=== PATIENT | female | born 1995 | race Two or more races ===

== ENCOUNTER 2016-10-28 20:03 | Outpatient (CLI) | payer OTHER | END 2016-10-28 20:04 | disposition home or self-care (01) | DX: N93.0 Postcoital and contact bleeding (principal); R10.31 Right lower quadrant pain ==

== ENCOUNTER 2016-12-18 20:32 | Emergency (ER) | payer OTHER ==
--- NOTE | 2016-12-18 22:03 | ED Physician Documentation ---
History of Present Illness - Stated complaint Stated Complaint: LT LEG PX - Chief complaint Chief Complaint: Ext Problem - History obtained from History obtained from: Patient - History of Present Illness Timing: How many weeks ago (several) Pain level max: 6 Pain level now: 6 Improved by: rest Worsened by: running - Additonal information Additional information: Patient is a 21-year-old female who presents to the emergency department with left tibial pain. This is better with rest and worse with running. States this is been an ongoing issue for several weeks. No fevers. No recent trauma. Review of Systems : denies: Now EGA Skin: denies: Rash Musculoskeletal: denies: Neck pain, Back pain Neurologic: denies: Headache PD PAST MEDICAL HISTORY - Past Medical History Past Medical History: No - Past Surgical History Past Surgical History: No - Present Medications Home Medications: Ambulatory Orders Medication Instructions Recorded Confirmed No Known Home Medications [No 12/18/16 12/18/16 Known Home Medications] - Allergies Allergies/Adverse Reactions: Allergies Allergy/AdvReac Type Severity Reaction Status Date / Time No Known Drug Allergies Allergy Verified 12/18/16 20:40 - Living Situation Living Situation: reports: With family Living Arrangement: reports: At home - Social History Does the pt have substance abuse?: No - Family History Family history: reports: Non contributory PD ED PE NORMAL - Vitals Vital signs reviewed: Yes - General General: Alert and oriented X 3, No acute distress - Derm Derm: Warm and dry - Extremities Extremities: No deformity, No tenderness to palpate, Normal ROM s pain, No edema , No calf tenderness / cord - Neuro Neuro: Alert and oriented X 3 - Psych Psych: Normal mood, Normal affect Results - Vitals Vitals: Vital Signs - 24 hr 12/18/16 12/18/16 20:36 22:12 Temperature 36.0 C L Heart Rate 79 76 Respiratory 20 16 Rate Blood Pressure 105/74 128/78 O2 Saturation 99 100 Oxygen O2 Source Room air PD MEDICAL DECISION MAKING - ED course Complexity details: considered differential, d/w patient ED course: Patient presents to the emergency department with what appears to be joseph splints. We will have her follow-up with her doctor for further evaluation and care. No tenderness on examination here. Recommend low impact exercise for her. Patient is ambulating well in the emergency department. Patient counseled regarding signs and symptoms for which I believe and urgent re-evaluation would be necessary. Patient with good understanding of and agreement to plan and is comfortable going home at this time This document was made in part using voice recognition software. While efforts are made to proofread this document, sound alike and grammatical errors may occur. Departure - Departure Disposition: 01 Home, Self Care Clinical Impression: Joseph splints Qualifiers: Encounter type: initial encounter Laterality: left Qualified Code(s): S86.892A - Other injury of other muscle(s) and tendon(s) at lower leg level, left leg, initial encounter Condition: Good Instructions: Splints Joseph Follow-Up: MALU VELAZQUEZ [Primary Care Provider] - Within 1 week Comments: Return if you worsen. You need to follow up with your doctor for further evaluation. Discharge Date/Time: 12/18/16 22:12
[2016-12-18 22:12] VITALS: BP 128/78
== END 2016-12-18 22:12 | disposition home or self-care (01) ==
LOC: ED 20:32
DX: S86.892A Other injury of other muscle(s) and tendon(s) at lower leg level, left leg, initial encounter (principal); X58.XXXA Exposure to other specified factors, initial encounter; Y93.02 Activity, running
CPT/HCPCS: 99282; 99283